=== PATIENT | male | born 1980 | race Two or more races ===

== ENCOUNTER 2024-09-05 06:24 | Emergency (ER) | payer MEDICAID, SELFPAY ==
[2024-09-05 06:27] VITALS: BMI 21.5
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
--- NOTE | 2024-09-05 06:43 | EKG_ITS ---
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
[2024-09-05 06:45] VITALS: BP 127/99; PULSE 86; RESP 16; O2SAT 98
[2024-09-05] MEDS: fentaNYL CIT INJ 50 mCg/ML AMP 2ML 25 MCG IVP (06:57)
[2024-09-05] MEDS: ONDANSETRON INJ 2 MG/ML INJ 2 ML 4 MG IV (06:57)
[2024-09-05] MEDS: DIPHTH,PERTUSS(ACELL),TET VAC 0.5 ML VIAL IMi (06:59)
[2024-09-05 07:02] LABS: Basophils % (Auto) 0 % (0-2.5); Eosinophils # (Auto) 0.1 Thou/mm3 (0.0-0.5); Eosinophils % (Auto) 0 % (0-10); Hematocrit 43.5 % (41.0-53.0); Hemoglobin 15.2 g/dL (13.5-16.0); Immature Granulocytes % (Auto) 0 % (0-0); Immature Granulocytes Auto 0.07 Thou/mm3 (0.00-0.00); Lymphocytes # (Auto) 1.1 Thou/mm3 (1.0-4.8); Lymphocytes % (Auto) 7 % (10-50); Mean Corpuscular HGB Conc 34.9 g/dl (31.0-37.0); Mean Corpuscular Hemoglobin 30.6 pg (25.0-35.0); Mean Corpuscular Volume 88 fL (80-100); Monocytes # (Auto) 1.2 Thou/mm3 (0.0-0.8); Monocytes % (Auto) 7 % (0-12); Neutrophils # (Auto) 14.6 Thou/mm3 (1.8-7.7); Neutrophils % (Auto) 85 % (37-80); Nucleated Red Blood Cell % 0 /100 WBC (0); Platelet Count 353 Thou/mm3 (140-440); RDW Standard Deviation 42.1 fL (35.1-43.9); Red Blood Count 4.96 Miln/mm3 (4.50-5.90); White Blood Count 17.1 Thou/mm3 (3.8-10.6)
[2024-09-05 07:17] LABS: Alanine Aminotransferase 24 U/L (10-49); Albumin, Serum 5.3 gm/dL (3.5-5.0); Albumin/Globulin Ratio 1.9 (1.2-2.2); Alkaline Phosphatase 76 U/L (46-116); Anion Gap 12 (7-16); Aspartate Amino Transferase 33 U/L (0-34); BUN/Creatinine Ratio 13 Ratio (12-20); Bilirubin,Total 0.8 mg/dL (0.3-1.2); Blood Urea Nitrogen 16 mg/dL (9-23); Calcium 10.5 mg/dL (8.3-10.6); Calcium (Corrected) 10.5 mg/dL (8.5-10.1); Carbon Dioxide 22.7 mMol/L (20.0-31.0); Chloride 102 mMol/L (98-107); Creatinine (Component) 1.2 mg/dL (0.6-1.3); Estimated Creatinine Clearance 74.8 mL/min (>60); Globulin 2.8 gm/dL (2.3-3.5); Glucose 94 mg/dL (74-106); Osmolality,Calculated 275 (275-295); Potassium 3.6 mMol/L (3.4-5.1); Sodium 137 mMol/L (136-145); Total Protein 8.1 gm/dL (5.7-8.2); Troponin I < 0.020 ng/mL (0.0-0.045); eGFR > 60 See Note
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
[2024-09-05 07:42] LABS: B-Type Natriuretic Peptide < 20 pg/mL (0-100)
[2024-09-05] MEDS: HYDROmorphone INJ 2 MG/ML VIAL 1 MG IVP (08:10)
[2024-09-05 08:14] VITALS: BP 120/97; PULSE 82; PULSE 83; RESP 18; TEMP 37.1; O2SAT 94
[2024-09-05] MEDS: POTASSIUM CHLORIDE 10% 20 MEQ/15 ML UDC 40 MEQ PO (09:16)
[2024-09-05] MEDS: LIDOCAINE HCL 1% 20 ML VIAL INFL (10:33)
[2024-09-05 11:00] VITALS: BP 136/86; PULSE 76; RESP 12; O2SAT 96
--- NOTE | 2024-09-05 11:12 | PD.EDADDENDU ---
Emergency Room Addendum Addendum Narrative: 1113 I was called to the patient's bedside by the nurse. The patient is somnolent and now has developed bilateral raccoon eyes as well as swelling to the right zygomatic and left mandibular area which was not present immediately on his arrival. I will repeat the CT scan of the head as well as perform CT scan of the maxillofacial
--- NOTE | 2024-09-05 11:14 | XR_ITS ---
Examination: CT brain head without contrast. 2-D sagittal coronal reconstructions Date and time of exam:September 05, 2024 1147 hrs. Indications: Decreasing altered mental status compared to the earlier CT examination this morning CTDI: vol (mGy):58.7 DLP: (mGycm):1267 Technique: Multiple CT axial sections of the brain have been obtained, 5 mm slice thickness. Contrast has not been administered. 2-D sagittal, coronal reconstructions have been obtained Low dose protocols were performed. One or more of the following dose reduction techniques were used; automated exposure control, adjustment of the mA and/or KV according to patient size, use of iterative reconstruction technique. Findings: No significant ventricular enlargement. Intra-axial or extra-axial hemorrhage density is not seen. No mass effect or midline shift Basal cisterns are not remarkable. Fourth ventricle is midline. Cranial vault intact. Impression: Negative for acute hemorrhage, mass effect or midline shift Consider brain MRI follow-up as clinically warranted
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
--- NOTE | 2024-09-05 11:40 | PC.NURSE ---
Patient to CT via gurney with F[employer].
[2024-09-05 12:00] VITALS: BP 124/91; PULSE 80; RESP 16; O2SAT 98
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
[2024-09-05 14:00] VITALS: BP 136/73; PULSE 73; RESP 13; O2SAT 95
[2024-09-05 15:36] VITALS: BP 135/98; PULSE 73; RESP 16; TEMP 36.6; O2SAT 100
[2024-09-05] MEDS: ACETAMINOPHEN 500 MG TABLET 1000 MG PO (15:53)
== END 2024-09-05 16:01 ==
PROVIDERS: Emergency Provider Emergency Medicine
DX: Z02.89 Encounter for other administrative examinations (principal); S43.101A Unspecified dislocation of right acromioclavicular joint, initial encounter; S01.81XA Laceration without foreign body of other part of head, initial encounter; S20.219A Contusion of unspecified front wall of thorax, initial encounter; S20.319A Abrasion of unspecified front wall of thorax, initial encounter; S19.9XXA Unspecified injury of neck, initial encounter; I45.10 Unspecified right bundle-branch block; Y00.XXXA Assault by blunt object, initial encounter; Z23 Encounter for immunization
CPT/HCPCS: 36415; 70450; 70486; 71260; 72125; 73030; 74177; 80053; 83735; 83880; 84484; 85025; 90471; 90715; 93005; 96374; 96375; 99291; A4649; J2405; J3010; J3490; Q9967; A9270